=== PATIENT | female | born 1975 | race Asian ===

== ENCOUNTER → 2024-08-14 | Outpatient (CLI) | payer BC, SELFPAY ==
[2024-08-14 11:54] LABS: Collection Type, Urine Clean Catch
[2024-08-14 12:15] LABS: Basophils # (Auto) 0.1 Thou/mm3 (0.0-0.2); Basophils % (Auto) 1 % (0-2.5); Eosinophils # (Auto) 0.4 Thou/mm3 (0.0-0.5); Eosinophils % (Auto) 6 % (0-10); Hematocrit 45.6 % (36.0-46.0); Hemoglobin 15.3 g/dL (12.0-16.0); Immature Granulocytes % (Auto) 0 % (0-0); Immature Granulocytes Auto 0.03 Thou/mm3 (0.00-0.00); Lymphocytes # (Auto) 2.4 Thou/mm3 (1.0-4.8); Lymphocytes % (Auto) 32 % (10-50); Mean Corpuscular HGB Conc 33.6 g/dl (31.0-37.0); Mean Corpuscular Hemoglobin 30.3 pg (25.0-35.0); Mean Corpuscular Volume 90 fL (80-100); Monocytes # (Auto) 0.5 Thou/mm3 (0.0-0.8); Monocytes % (Auto) 7 % (0-12); Neutrophils # (Auto) 4.1 Thou/mm3 (1.8-7.7); Neutrophils % (Auto) 54 % (37-80); Nucleated Red Blood Cell % 0 /100 WBC (0); Platelet Count 257 Thou/mm3 (140-440); RDW Standard Deviation 38.3 fL (36.4-46.3); Red Blood Count 5.05 Miln/mm3 (4.00-5.20); White Blood Count 7.5 Thou/mm3 (3.6-11.0)
[2024-08-14 12:23] LABS: Albumin, Serum 5.1 gm/dL (3.5-5.0); Anion Gap 10 (7-16); BUN/Creatinine Ratio 16 Ratio (12-20); Blood Urea Nitrogen 13 mg/dL (9-23); Calcium 10.2 mg/dL (8.3-10.6); Calcium (Corrected) 10.2 mg/dL (8.5-10.1); Carbon Dioxide 27.7 mMol/L (20.0-31.0); Chloride 98 mMol/L (98-107); Creatinine (Component) 0.8 mg/dL (0.6-1.3); Glucose 238 mg/dL (74-106); Osmolality,Calculated 280 (275-295); Phosphorous 4.5 mg/dL (2.4-5.1); Potassium 4.5 mMol/L (3.4-5.1); Sodium 136 mMol/L (136-145); eGFR > 60 See Note
[2024-08-14 12:24] LABS: Creatinine MALB Rnd Ur 72 mg/dL (30-125); Creatinine,Random Urine 72 mg/dL (30-125); Microalbumin Creat Ratio 296 mg/gCrea (<30); Microalbumin, Random Urine 213 mg/L (0-300); Protein Total, Random Urine 41 mg/dL (1-14)
[2024-08-14 12:26] LABS: Glucose Estimated Average 206 mg/dL (80-131); Hemoglobin A1C 8.8 % Hgb (4.8-6.0)
[2024-08-14 12:27] LABS: Bacteria,Urine 3+; Bilirubin,Urine Negative (Negative); Blood,Urine Negative (Negative); Clarity,Urine Hazy (Clear/Hazy); Color,Urine Lt-Yellow (Lt Yel-Yel); Culture Indicated,Urine Yes; Glucose, Urine 3+ (Negative); Ketones,Urine Negative (Negative); Leukocyte Esterase,Urine Negative (Negative); Nitrite,Urine Positive (Negative); Protein,Urine 1+ (Neg - Trace); RBC,Urine 1 /hpf (0-3); Specific Gravity,Urine 1.013 (1.001-1.035); Squamous Epithelial Cell,Urine < 1 /hpf (0-5); Urobilinogen,Urine Negative mg/dL (0.0-1.0); WBC,Urine 1 /hpf (0-5)
[2024-08-14 12:28] LABS: Vitamin D 25 Hydroxy Total 34.6 ng/mL (7.3-40.2)
== END | disposition home or self-care (01) ==
LOC: COPL 11:11
PROVIDERS: PCP Nurse Practitioner Family; Referring Provider Internal Medicine Nephrology; Visit Provider Internal Medicine Nephrology
DX: E11.22 Type 2 diabetes mellitus with diabetic chronic kidney disease (principal); N18.2 Chronic kidney disease, stage 2 (mild); E55.9 Vitamin D deficiency, unspecified; R80.9 Proteinuria, unspecified
CPT/HCPCS: 36415; 80069; 81001; 82043; 82306; 82570; 83036; 83970; 84156; 85025; 87077; 87086; 87186

== ENCOUNTER 2024-11-02 10:10 | Emergency (ER) | payer BC, SELFPAY ==
--- NOTE | 2024-11-02 10:22 | EKG_ITS ---
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
[2024-11-02 10:26] VITALS: BP 145/91; PULSE 103; RESP 18; TEMP 37.6; O2SAT 95; BMI 30.4
--- NOTE | 2024-11-02 10:40 | XR_ITS ---
Examination: PA lateral chest 2 views TECHNIQUE: Upright PA lateral chest 2 views Exam date and time: 1052 hours Comparison December 19, 2023 INDICATIONS: Nausea vomiting beginning 4 days ago FINDINGS: Normal heart size. Lungs are clear. Osseous structures are intact IMPRESSION: No active disease
--- NOTE | 2024-11-02 10:41 | PD.EDRME ---
Rapid Medical Screening Exam [facility] Arrival date/time: 11/02/24 10:10 49-year-old female with diabetes and hypertension presents to the emergency department today for complaints of elevated blood sugar and feeling unwell Chief Complaint: Dizziness Vital signs: Vital Signs Temperature 99.7 F 11/02/24 10:26 Pulse Rate 103 H 11/02/24 10:26 Respiratory Rate 18 11/02/24 10:26 Blood Pressure 145/91 H 11/02/24 10:26 Pulse Oximetry (%) 95 11/02/24 10:26 Oxygen Delivery Method Room Air 11/02/24 10:26
[2024-11-02 11:16] LABS: Base Excess, Venous 3 (-3-3); O2 Saturation, Venous 43 % (96-97); PCO2, Venous 56 mmHg (36-56); PO2, Venous 27 mmHg (15-58); pH, Venous 7.34 (7.33-7.66)
[2024-11-02 11:17] LABS: Basophils # (Auto) 0.1 Thou/mm3 (0.0-0.2); Basophils % (Auto) 1 % (0-2.5); Eosinophils # (Auto) 0.4 Thou/mm3 (0.0-0.5); Eosinophils % (Auto) 5 % (0-10); Hematocrit 50.1 % (36.0-46.0); Immature Granulocytes % (Auto) 0 % (0-0); Immature Granulocytes Auto 0.03 Thou/mm3 (0.00-0.00); Lymphocytes # (Auto) 2.1 Thou/mm3 (1.0-4.8); Lymphocytes % (Auto) 25 % (10-50); Mean Corpuscular HGB Conc 33.9 g/dl (31.0-37.0); Mean Corpuscular Hemoglobin 30.7 pg (25.0-35.0); Mean Corpuscular Volume 91 fL (80-100); Monocytes # (Auto) 0.6 Thou/mm3 (0.0-0.8); Monocytes % (Auto) 7 % (0-12); Neutrophils # (Auto) 5.2 Thou/mm3 (1.8-7.7); Neutrophils % (Auto) 63 % (37-80); Nucleated Red Blood Cell % 0 /100 WBC (0); Platelet Count 256 Thou/mm3 (140-440); RDW Standard Deviation 38.5 fL (36.4-46.3); Red Blood Count 5.53 Miln/mm3 (4.00-5.20); White Blood Count 8.3 Thou/mm3 (3.6-11.0)
[2024-11-02 11:20] LABS: Beta Hydroxybutyrate 0.3 mmol/L (<0.6)
[2024-11-02 11:30] LABS: Glucose Estimated Average 258 mg/dL (80-131); Hemoglobin A1C 10.6 % Hgb (4.8-6.0)
[2024-11-02 11:39] LABS: Alanine Aminotransferase 27 U/L (10-49); Albumin, Serum 5.1 gm/dL (3.5-5.0); Albumin/Globulin Ratio 1.5 (1.2-2.2); Alkaline Phosphatase 97 U/L (46-116); Anion Gap 10 (7-16); Aspartate Amino Transferase 12 U/L (0-34); BUN/Creatinine Ratio 13 Ratio (12-20); Bilirubin,Total 1.5 mg/dL (0.3-1.2); Blood Urea Nitrogen 12 mg/dL (9-23); Calcium 10.3 mg/dL (8.3-10.6); Calcium (Corrected) 10.3 mg/dL (8.5-10.1); Carbon Dioxide 28.3 mMol/L (20.0-31.0); Chloride 98 mMol/L (98-107); Creatinine (Component) 0.9 mg/dL (0.6-1.3); Estimated Creatinine Clearance 80.5 mL/min (>60); Globulin 3.4 gm/dL (2.3-3.5); Glucose 354 mg/dL (74-106); Magnesium 1.6 mg/dL (1.6-2.6); Osmolality,Calculated 285 (275-295); Potassium 4.3 mMol/L (3.4-5.1); Sodium 136 mMol/L (136-145); Total Protein 8.5 gm/dL (5.7-8.2); Troponin I < 0.002 ng/mL (0.0-0.045); eGFR > 60 See Note
[2024-11-02 12:12] LABS: Collection Type, Urine Clean Catch
[2024-11-02 12:32] LABS: HCG Qualitative,Urine Negative
[2024-11-02 12:33] LABS: Bacteria,Urine 2+; Bilirubin,Urine Negative (Negative); Blood,Urine Negative (Negative); Clarity,Urine Clear (Clear/Hazy); Color,Urine Lt-Yellow (Lt Yel-Yel); Glucose, Urine 4+ (Negative); Ketones,Urine Negative (Negative); Leukocyte Esterase,Urine Negative (Negative); Nitrite,Urine Positive (Negative); Protein,Urine 2+ (Neg - Trace); RBC,Urine 1 /hpf (0-3); Specific Gravity,Urine 1.036 (1.001-1.035); Squamous Epithelial Cell,Urine < 1 /hpf (0-5); Urobilinogen,Urine Negative mg/dL (0.0-1.0); WBC,Urine 1 /hpf (0-5)
[2024-11-02 12:38] LABS: Amphetamine/Methamp Scrn,U Negative (Negative); Barbiturate Screen,Urine Negative (Negative); Benzodiazepines Screen,Urine Negative (Negative); Benzoylecgonine Screen, Ur Negative (Negative); Fentanyl Screen,Urine Negative (Negative); Opiate Screen,Urine Negative (Negative); THC Screen,Urine Negative (Negative)
[2024-11-02 12:45] LABS: Lipase 59 U/L (12-53)
--- NOTE | 2024-11-02 14:54 | EDNOTE_ITS ---
ED General RME/HPI General Chief complaint: Dizziness Stated complaint: DIZZY, NAUSEA/VOMIT, CX PAIN, SOB; HX DKA FEBRUARY Time Seen by Provider: 11/02/24 14:46 Arrival date/time: 11/02/24 10:10 RME / HPI RME / HPI narrative: 49-year-old female with diabetes and hypertension presents to the emergency department today for complaints of elevated blood sugar and feeling unwell. Patient also complained of dizzy nausea but denies any vomiting. Also complaining of chest discomfort and shortness of breath. Symptoms been ongoing for the last few days. Patient has been taking her Lantus, lispro, and metformin with good compliance she is worried because she got admitted for DKA in [place] last February. Related Data Home Medications ?Medication ?Instructions ?Recorded ?Confirmed metformin 1,000 mg tablet 1,000 mg PO BID #0 tabs 09/1710/25/18 (Glucophage) albuterol sulfate 90 mcg/actuation 2 puff inhalation Q 6HR PRN 10/12/16 10/25/18 aerosol inhaler (Proventil HFA) SHORTNESS OF BREATH #0 inhalations carvedilol 6.25 mg tablet (Coreg) 6.25 mg PO BID #0 ta bs 10/12/16 10/25/18 glyburide 5 mg tablet 5 mg PO BIDAC #0 tabs 10/25/18 losartan 50 mg tablet 50 mg PO QDAY 06/21/1810/25 Previous Rx's ?Medication ?Instructions ?Recorded prednisone 20 mg tablet 20 mg PO QDAY #3 tabs Allergies Allergy/AdvReac Type Severity Reaction Status Date / Time No Known Allergies Allergy Verified 11/02/24 10:16 Review of Systems Review of Systems Narrative Review of Systems: Review of system reviewed and within normal limits except mentioned in HPI ED Exam Narrative Physical exam: VITAL SIGNS: Reviewed. GENERAL APPEARANCE: Alert and interactive, follows commands, no acute distress, HEAD AND FACE: Non-traumatic. ENT: PERRL, pink conjunctivitis, eyelid no trauma, Mucous membrane moist. NECK: Supple, nontender, no nuchal rigidity. CHEST: No tenderness, no crepitus, no paradoxical movement, no retractions. LUNGS: Clear, well ventilated, symmetric, no rales, no wheezing, no ronchi, no stridor, good breath sounds bilaterally. HEART: Regular rate, regular rhythm, no murmur, no gallops. ABDOMEN: Soft, positive bowel sounds, nondistended, no guarding, nontender, no rebound, no masses, RECTAL: Deferred. GENITAL: Deferred. NEUROLOGICAL: Gross motor function intact sensory function intact, Appropriate for age. MUSCULOSKELETAL: low back nontender, full range of motion. EXTREMITIES: Nontender, full range of motion. SKIN: Color pink, dry, no rash, no lacerations, no abrasions, no contusions. LYMPHATICS: Deferred. Course Quality Measures none Orders Category Date Time Status Bedside Blood Glucose NOW Care 11/02/24 10:41 Active Bedside Influenza A&B Antigen Test NOW Care 11/02/24 10:41 Active EKG (ED ONLY) *Do not use* NOW Care 11/02/24 10:22 Completed EKG (ED Only) Stat Exams 11/02/24 10:22 Draft XR chest 2V Stat Exams 11/02/24 10:40 Completed A1C [Glycohemoglobin w (eAG)] Stat Lab 11/02/24 11:01 Completed Beta Hydroxybutyrate Stat Lab 11/02/24 11:01 Completed CBC Stat Lab 11/02/24 11:01 Completed Comprehensive Metabolic Panel Stat Lab 11/02/24 11:01 Completed Drug Screen,Urine Stat Lab 11/02/24 12:05 Completed HCG Qualitative,Urine Stat Lab 11/02/24 12:05 Completed Lipase Stat Lab 11/02/24 12:13 Completed Magnesium Stat Lab 11/02/24 11:01 Completed Troponin I Stat Lab 11/02/24 11:01 Completed Urinalysis Stat Lab 11/02/24 12:05 Completed VBG [Venous Blood Gas] Stat Lab 11/02/24 11:01 Completed Vital Signs Vital signs: Vital Signs Temperature 99.7 F 11/02/24 10:26 Pulse Rate 103 H 11/02/24 10:26 Respiratory Rate 18 11/02/24 10:26 Blood Pressure 145/91 H 11/02/24 10:26 Pulse Oximetry (%) 95 11/02/24 10:26 Oxygen Delivery Method Room Air 11/02/24 10:26 [facility] Patient data External records reviewed:: None Clinical information provided by:: patient Social determinants that could affect healthcare access:: none Patient has the following chronic illnesses:: Diabetic ketoacidosis How is presenting disease/condition affected by chronic disease/condition?: e xacerbated by Evaluation data The following diagnostics were reviewed and interpreted by me:: lab results, radiology exam(s) and EKG tracing(s) Lab and/or radiology exams considered but not ordered:: None Interpretation Summary: See results in MDM Medications Medications considered but not ordered:: None Medication administrations:: none Consultations Consultation(s) initiated? (list below): No Diagnosis Differential Diagnosis ED Complaint MDM: Hyperglycemia, dizziness, DKA Most likely diagnosis given after review of the tests above:: Hyperglycemia Admission Indicated Admission indicated?: not indicated Explain why admission is indicated or not indicated:: None Admission Request Was there a request for admission?: No Disposition Plan Disposition Plan: Discharge Discharge Attestation Discharge Attestation: The patient was given an opportunity to ask questions and understood the discharge instructions. Discharge instructions specifically effects, indications for sooner follow up or return to the emergency department, and the expected course of current diagnosis. Patient condition: Stable Medical Decision Making MDM Narrative MDM Narrative: 49-year-old female with diabetes and hypertension presents to the emergency department today for complaints of elevated blood sugar and feeling unwell. Patient also complained of dizzy nausea but denies any vomiting. Also complaining of chest discomfort and shortness of breath. Symptoms been ongoing for the last few days. Patient has been taking her Lantus, lispro, and metformin with good compliance she is worried because she got admitted for DKA in [place] last February. Patient's workup today all came back normal including normal troponin except for blood sugar of 354. Patient is not showing any sign of diabetic ketoacidosis. Urinalysis no UTI. I personally reviewed and interpreted the x-ray of this patient. There is no acute abnormalities found, no infiltrates no pneumothorax no hemothorax normal chest x-ray. Review of other structures was without significant abnormal findings also. I additionally reviewed the radiologist report and agree with the interpretation. EKG showed normal sinus rhythm ventricular rate of 100 bpm, no ST segment elevation depression noted. Plan of care discussed with the patient including signs of diabetic ketoacidosis with site told her today that there is no sign of ketoacidosis. Her blood sugar was noted to be 351 prior to ER visit. At this time there is no need to medicate the patient since she had her on insulin at home, and she is tolerating p.o. fluids. There is no need to admit this patient for blood sugar of 351 with no sign of diabetic ketoacidosis. Patient told me that if she can walk out without discharge instruction. Differential Diagnosis Differential Diagnosis: Hyperglycemia, dizziness, DKA Lab Data 11/02/24 11:01 11/02/24 11:01 Labs: Lab Results 11/02/24 11/02/24 11/02/24 Range/Units 11:01 12:05 12:13 WBC 8.3 (3.6-11.0) Thou/mm3 RBC 5.53 H (4.00-5.20) Miln/mm3 Hgb 17.0 H (12.0-16.0) g/dL Hct 50.1 H (36.0-46.0) % MCV 91 (80-100) fL MCH 30.7 (25.0-35.0) pg MCHC 33.9 (31.0-37.0) g/dl RDW Std Deviation 38.5 (36.4-46.3) fL Plt Count 256 (140-440) Thou/mm3 Neut % (Auto) 63 (37-80) % Lymph % (Auto) 25 (10-50) % [place] % (Auto) 7 (0-12) % Eos % (Auto) 5 (0-10) % Baso % (Auto) 1 (0-2.5) % Neut # (Auto) 5.2 (1.8-7.7) Thou/mm3 Lymph # (Auto) 2.1 (1.0-4.8) Thou/mm3 [place] # (Auto) 0.6 (0.0-0.8) Thou/mm3 Eos # (Auto) 0.4 (0.0-0.5) Thou/mm3 Baso # (Auto) 0.1 (0.0-0.2) Thou/mm3 Immature Gran # (Auto) 0.03 H (0.00-0.00) Thou/mm3 Absolute Nucleated RBC 0.00 (0.00-0.00) Thou/mm3 Immature Gran % 0 (0-0) % Nucleated RBC % 0 (0) /100 WBC VBG pH 7.34 (7.33-7.66) VBG pCO2 56 (36-56) mmHg VBG pO2 27 (15-58) mmHg VBG O2 Sat (Ac) 43 L (96-97) % VBG Base Excess 3 (-3-3) Sodium 136 (136-145) mMol/L Potassium 4.3 (3.4-5.1) mMol/L Chloride 98 (98-107) mMol/L Carbon Dioxide 28.3 (20.0-31.0) mMol/L Anion Gap 10 (7-16) BUN 12 (9-23) mg/dL Creatinine 0.9 (0.6-1.3) mg/dL Estim Creat Clear Calc 80.5 (>60) mL/min eGFR > 60 (60 - ) See Note BUN/Creatinine Ratio 13 (12-20) Ratio Glucose 354 H (74-106) mg/dL Estimated Ave Glu mg/dL 258 H (80-131) mg/dL Hemoglobin A1c 10.6 H (4.8-6.0) % Hgb Calculated Osmolality 285 (275-295) Calcium 10.3 (8.3-10.6) mg/dL Corrected Calcium 10.3 H (8.5-10.1) mg/dL Magnesium 1.6 (1.6-2.6) mg/dL Total Bilirubin 1.5 H (0.3-1.2) mg/dL AST 12 (0-34) U/L ALT 27 (10-49) U/L Alkaline Phosphatase 97 (46-116) U/L Troponin I < 0.002 (0.0-0.045) ng/mL Total Protein 8.5 H (5.7-8.2) gm/dL Albumin 5.1 H (3.5-5.0) gm/dL Globulin 3.4 (2.3-3.5) gm/dL Albumin/Globulin Ratio 1.5 (1.2-2.2) Lipase 59 H (12-53) U/L Beta-Hydroxybutyrate/Acetoacetate 0.3 (<0.6) mmol/L Ur Collection Type Clean Catch Urine Color Lt-Yellow (Lt Yel-Yel) Urine Clarity Clear (Clear/Hazy) Urine pH 6.0 (5.0-7.0) Ur Specific [place] 1.036 H (1.001-1.035) Urine Protein 2+ A (Neg - Trace) Urine Glucose (UA) 4+ A (Negative) Urine Ketones Negative (Negative) Urine Blood Negative (Negative) Urine Nitrite Positive (Negative) Urine Bilirubin Negative (Negative) Urine Urobilinogen (Auto) Negative (0.0-1.0) mg/dL Ur Leukocyte Esterase Negative (Negative) Urine RBC 1 (0-3) /hpf Urine WBC 1 (0-5) /hpf Ur Squamous Epith Cells < 1 (0-5) /hpf Urine Bacteria 2+ A (None) Urine HCG, Qual Negative Urine Opiates Screen Negative (Negative) Urine Fentanyl Screen Negative (Negative) Ur Barbiturates Screen Negative (Negative) U Amphetamin/Meth Scrn Negative (Negative) U Benzodiazepines Scrn Negative (Negative) U Cocaine Metab Screen Negative (Negative) U Marijuana (THC) Screen Negative (Negative) Discharge Plan Plan Patient Disposition: HOME (Self Care) Disposition Comment: Stable Prescriptions/Referrals Prescriptions/Med Rec: No Action metformin [Glucophage] 1,000 MG tablet 1,000 mg PO BID Qty: 0 carvedilol [Coreg] 6.25 MG tablet 6.25 mg PO BID Qty: 0 glyburide 5 MG tablet 5 mg PO BIDAC Qty: 0 albuterol sulfate [Proventil HFA] 6.7 GM HFA aerosol inhaler 2 puff Inhalation Q6HR PRN (Reason: SHORTNESS OF BREATH) Qty: 0 losartan 50 mg Tablet 50 mg PO QDAY prednisone 20 mg tablet 20 mg PO QDAY Qty: 3 0RF Referrals: Anel Voss [Primary Care Provider] - In 1 week Problem List Clinical Impression: Hyperglycemia Patient/Caregiver Discharge Instructions Discharge Activity: activity as tolerated Education Materials: High Blood Sugar (Hyperglycemia) Additional Instructions: Thank you for the opportunity for serving you today. You are stable for discharged . You are advised to: Follow-up with your PCP in 1 to 2 days Return to ED for worsening of symptoms Increase oral fluids Continue taking your diabetes medications. Watch your carbohydrate intake. Print Language: Gabonese Stand Alone Forms: [facility] Award Info., Patient Portal Info Letter
[2024-11-02 15:03] VITALS: PULSE 89
== END 2024-11-02 15:03 | disposition home or self-care (01) ==
PROVIDERS: Nurse Practitioner Primary Care; Emergency Provider Emergency Medicine; PCP Nurse Practitioner Family
DX: E11.65 Type 2 diabetes mellitus with hyperglycemia (principal); R11.2 Nausea with vomiting, unspecified; R00.0 Tachycardia, unspecified; I10 Essential (primary) hypertension; Z79.84 Long term (current) use of oral hypoglycemic drugs
CPT/HCPCS: 36415; 71046; 80053; 80307; 81001; 81025; 82010; 82803; 83036; 83690; 83735; 84484; 85025; 93005; 99283

== ENCOUNTER → 2025-03-09 | Outpatient (CLI) | payer BC, SELFPAY ==
[2025-03-09 09:01] LABS: Collection Type, Urine Clean Catch
[2025-03-09 09:24] LABS: Basophils # (Auto) 0.1 Thou/mm3 (0.0-0.2); Basophils % (Auto) 1 % (0-2.5); Eosinophils # (Auto) 0.5 Thou/mm3 (0.0-0.5); Eosinophils % (Auto) 7 % (0-10); Hematocrit 47.5 % (36.0-46.0); Hemoglobin 15.8 g/dL (12.0-16.0); Immature Granulocytes Auto 0.02 Thou/mm3 (0.00-0.00); Lymphocytes # (Auto) 1.8 Thou/mm3 (1.0-4.8); Lymphocytes % (Auto) 28 % (10-50); Mean Corpuscular HGB Conc 33.3 g/dl (31.0-37.0); Mean Corpuscular Hemoglobin 30.9 pg (25.0-35.0); Mean Corpuscular Volume 93 fL (80-100); Monocytes # (Auto) 0.5 Thou/mm3 (0.0-0.8); Monocytes % (Auto) 7 % (0-12); Neutrophils # (Auto) 3.7 Thou/mm3 (1.8-7.7); Neutrophils % (Auto) 57 % (37-80); Nucleated Red Blood Cell # 0.00 Thou/mm3 (0.00-0.00); Nucleated Red Blood Cell % 0 /100 WBC (0); Platelet Count 236 Thou/mm3 (140-440); RDW Standard Deviation 39.7 fL (36.4-46.3); Red Blood Count 5.12 Miln/mm3 (4.00-5.20); White Blood Count 6.5 Thou/mm3 (3.6-11.0)
[2025-03-09 09:31] LABS: Bacteria,Urine Rare; Bilirubin,Urine Negative (Negative); Blood,Urine Negative (Negative); Clarity,Urine Clear (Clear/Hazy); Color,Urine Lt-Yellow (Lt Yel-Yel); Glucose, Urine 4+ (Negative); Ketones,Urine Trace (Negative); Leukocyte Esterase,Urine Negative (Negative); Nitrite,Urine Positive (Negative); PH,Urine 5.5 (5.0-7.0); Protein,Urine Trace (Neg - Trace); RBC,Urine 1 /hpf (0-3); Specific Gravity,Urine 1.036 (1.001-1.035); Squamous Epithelial Cell,Urine 1 /hpf (0-5); Urobilinogen,Urine Negative mg/dL (0.0-1.0); WBC,Urine 2 /hpf (0-5)
[2025-03-09 09:35] LABS: Culture Indicated,Urine Yes
[2025-03-09 09:37] LABS: Glucose Estimated Average 321 mg/dL (80-131); Hemoglobin A1C 12.8 % Hgb (4.8-6.0)
[2025-03-09 09:52] LABS: Folate 23.48 ng/mL (>5.38); Vitamin B12 564 pg/mL (211-911); Vitamin D 25 Hydroxy Total 25.0 ng/mL (7.3-40.2)
[2025-03-09 10:00] LABS: Alanine Aminotransferase 24 U/L (10-49); Albumin, Serum 4.5 gm/dL (3.5-5.0); Albumin/Globulin Ratio 1.5 (1.2-2.2); Alkaline Phosphatase 92 U/L (46-116); Anion Gap 13 (7-16); Aspartate Amino Transferase 19 U/L (0-34); BUN/Creatinine Ratio 14 Ratio (12-20); Bilirubin,Total 1.2 mg/dL (0.3-1.2); Blood Urea Nitrogen 14 mg/dL (9-23); C-Reactive Protein < 0.5 mg/dL (0.0-0.9); Calcium 9.8 mg/dL (8.3-10.6); Calcium (Corrected) 9.8 mg/dL (8.5-10.1); Carbon Dioxide 25.9 mMol/L (20.0-31.0); Cardiac Risk Estimate 2.4 RATIO (3.7-5.6); Chloride 98 mMol/L (98-107); Cholesterol 139 mg/dL (132-200); Creatinine (Component) 1.0 mg/dL (0.6-1.3); Free T4 (Free Thyroxine) 1.41 ng/dL (0.89-1.76); Globulin 3.1 gm/dL (2.3-3.5); Glucose 380 mg/dL (74-106); HDL Cholesterol 58 mg/dL (40-60); LDL Cholesterol,Calculated 54 mg/dL (0-130); Magnesium 1.3 mg/dL (1.6-2.6); Osmolality,Calculated 290 (275-295); Potassium 4.8 mMol/L (3.4-5.1); Sodium 137 mMol/L (136-145); Thyroid Stimulating Hormone 1.58 uIU/mL (0.55-4.78); Total Protein 7.6 gm/dL (5.7-8.2); Triglycerides 134 mg/dL (30-150); eGFR > 60 See Note
[2025-03-09 10:05] LABS: Ferritin 173 ng/mL (7.3-270.7); Iron 98 mcg/dL (50-170); Total Iron Binding Capacity 346 mcg/dL (250-425)
[2025-03-09 10:13] LABS: Creatinine MALB Rnd Ur 63 mg/dL (30-125); Microalbumin Creat Ratio 148 mg/gCrea (<30); Microalbumin, Random Urine 93 mg/L (0-300)
== END | disposition home or self-care (01) ==
PROVIDERS: PCP Nurse Practitioner Family; Referring Provider Nurse Practitioner Family; Visit Provider Nurse Practitioner Family
DX: E11.65 Type 2 diabetes mellitus with hyperglycemia (principal); E11.21 Type 2 diabetes mellitus with diabetic nephropathy; E78.5 Hyperlipidemia, unspecified; E83.42 Hypomagnesemia; F32.A Depression, unspecified
CPT/HCPCS: 36415; 80053; 80061; 81001; 82043; 82306; 82570; 82607; 82728; 82746; 83036; 83540; 83550; 83735; 84439; 84443; 85025; 86140; 87077; 87086; 87186

== ENCOUNTER → 2025-05-01 | Outpatient (CLI) | payer BC, SELFPAY ==
--- NOTE | 2025-05-01 13:30 | XR_ITS ---
Examination: Ultrasound soft tissue neck TECHNIQUE: Grayscale sonographic images soft tissue neck and face Date and time: May 01, 2025 1308 hours INDICATIONS: Bilateral neck pain beginning one year ago. FINDINGS: Multiple bilateral submental lymph nodes, the largest on the right side 19 x 14 mm on the left side 18 x 12 mm IMPRESSION: Significant cervical lymphadenopathy Recommend CT soft tissue neck post intravenous contrast follow-up
== END | disposition home or self-care (01) ==
PROVIDERS: PCP Nurse Practitioner Family; Referring Provider Nurse Practitioner Family; Visit Provider Nurse Practitioner Family
DX: R59.0 Localized enlarged lymph nodes (principal)
CPT/HCPCS: 76536